=== PATIENT | female | born 1945 ===

== ENCOUNTER 2021-07-03 05:57 | Day surgery (SDC) | payer OTHER ==
[~2021-07-03 05:57] MED LIST: ADULT LOW DOSE81 M1 PO; FOLIC ACID20 MG PO; GABAPENTIN100 M2 PO; LEVO-T75 MCG PO; LIPITOR20 MG PO; PEPCID AC20 MG PO; PREVACID30 MG PO; TOPROL XL25 M1 PO
[2021-07-03] MEDS ORDERED: OXYC1TAB9 PO (14:32)
[2021-07-03] MEDS ORDERED: DUI500 PO (14:32)
== END 2021-07-03 18:00 | disposition home or self-care (01) ==
LOC: CIR.AMB 05:57
PROVIDERS: ATTEND Orthopaedic Surgery Sports Medicine
DX: M75.122 Complete rotator cuff tear or rupture of left shoulder, not specified as traumatic (principal); M75.112 Incomplete rotator cuff tear or rupture of left shoulder, not specified as traumatic; I10 Essential (primary) hypertension; E78.5 Hyperlipidemia, unspecified; E03.9 Hypothyroidism, unspecified

== ENCOUNTER 2024-05-26 07:00 | Inpatient (IN) | payer OTHER ==
[~2024-05-26] VITALS: Ht 160 cm; Wt 0.5 kg
[~2024-05-26 07:00] MED LIST changes: +DUI500 PO; +OXYC1TAB9 PO
[2024-05-26 07:47] LABS: HEMATOCRIT 39.8 % (36.0-45.00); HEMOGLOBIN 13.2 g/dL (12.0-15.00); MEAN CELL VOLUME 88.3 fL (80.00-100.00); MEAN CORPUSCULAR HEMOGLOBIN 29.3 pg (27.00-32.0); MEAN CORPUSCULAR HGB CONC 33.1 g/dl (32.0-36.0); PLATELET COUNT 222 K/uL (150-450); RED CELL DISTRIBUTION WIDTH 14.5 % (11.5-14.5)
[2024-05-26 07:51] VITALS: BP 132/82
[2024-05-26 07:52] LABS: URINE APPEARANCE Clear; URINE BILIRRUBIN Negative (NEGATIVE); URINE BLOOD Negative; URINE COLOR Yellow; URINE GLUCOSE Negative (NEGATIVE); URINE KETONE Negative (NEGATIVE); URINE LEUKOCYTE Moderate; URINE NITRATE Negative; URINE PROTEIN Negative (NEGATIVE); URINE UROBILINOGEN 0.2 E.U./dl
[2024-05-26] MEDS ORDERED: FOSAMAX70 MG PO (07:55)
[2024-05-26 07:56] LABS: URINE BACTERIA 127.2 uL (0.0-1933); URINE EPITHELIAL CELLS 14.8 uL (0.0-38.8); URINE WBC 26.4 uL (0.0-23.2)
[2024-05-26 08:12] LABS: URINE CAST 0.44 uL (0.0-1.40)
[2024-05-26 08:17] LABS: INR 0.96; PARTIAL THROMBOPLASTIN TIME 23.5 SECONDS (22.0-34.0); PROTHROMBIN TIME 10.5 SECONDS (9.0-11.5)
[2024-05-26 08:52] LABS: ALBUMIN 3.7 gm/dL (3.4-5.0); BILIRUBIN TOTAL 0.51 mg/dL (0.3-1.2); CALCIUM 9.1 mg/dL (8.5-10.1); CREATININE SERUM 0.78 mg/dL (0.55-1.02); GFR 71.43; GLOBULINA 3.7 G/DL (2.4-3.5); POTASSIUM 4.65 mEq/L (3.5-5.1); TOTAL PROTEIN 7.4 gm/dL (6.4-8.2)
[2024-05-26 11:34] LABS: RH POSITIVE
[2024-06-01] MEDS ORDERED: VANCOMYCIN HCL 1,000 MG VIAL IV ONE (10:15)
[2024-06-01] MEDS ORDERED: TRANEXAMIC ACID 100MG/1ML (1000MG) AMPUL IV ONE (10:15)
[2024-06-01] MEDS ORDERED: CEFAZOLIN SODIUM 1,000 MG VIAL IV ONE (10:15)
[2024-06-01] MEDS ORDERED: KETOROLAC TROMETHAMINE 60 MG VIAL IM ONE (11:19)
[2024-06-01] MEDS ORDERED: SUGAMMADEX SODIUM 200 MG/2 ML VIAL IV ONE (11:34)
[2024-06-01] MEDS ORDERED: GENTAMICIN SULFATE 40 MG/ML VIAL IV SCH (12:02)
[2024-06-01] MEDS ORDERED: MORPHINE SULFATE 2 MG/ML CARTRIDGE IV ONE (12:15)
[2024-06-01] MEDS ORDERED: MORPHINE SULFATE 4 MG/ML CARTRIDGE IV PRN (12:15)
[2024-06-01] MEDS ORDERED: SODIUM CHLORIDE 0.45 % 1,000 ML IV SCH (12:15)
[2024-06-01] MEDS ORDERED: ONDANSETRON HCL 2 MG/ML VIAL IV PRN (12:15)
[2024-06-01] MEDS ORDERED: MORPHINE SULFATE 4 MG/ML VIAL IV ONE (12:50)
[2024-06-01] MEDS ORDERED: ENALAPRILAT DIHYDRATE 1.25 MG/ML VIAL IV PRN (14:00)
[2024-06-01 15:02] LABS: HEMATOCRIT 36.9 % (36.0-45.00); HEMOGLOBIN 12.4 g/dL (12.0-15.00); RED BLOOD COUNT 4.22 M/uL (4.00-6.00)
[2024-06-01 16:00] VITALS: BP 135/78; O2SAT 91
[2024-06-01] MEDS ORDERED: CEFAZOLIN SODIUM 1,000 MG VIAL IV SCH (18:00)
[2024-06-01] MEDS ORDERED: FAMOtidine 20 MG TABLET PO SCH (21:00)
[2024-06-02 00:17] VITALS: BP 128/60; O2SAT 97
[2024-06-02] MEDS ORDERED: LEVOTHYROXINE SODIUM 75 MCG TABLET PO SCH (06:00)
[2024-06-02] MEDS ORDERED: LEVOTHYROXINE SODIUM 88 MCG TABLET PO SCH (06:00)
[2024-06-02 07:10] LABS: HEMATOCRIT 38.1 % (36.0-45.00); HEMOGLOBIN 12.8 g/dL (12.0-15.00); MEAN CORPUSCULAR HEMOGLOBIN 29.5 pg (27.00-32.0); MEAN CORPUSCULAR HGB CONC 33.5 g/dl (32.0-36.0); PLATELET COUNT 231 K/uL (150-450); RED BLOOD COUNT 4.33 M/uL (4.00-6.00); RED CELL DISTRIBUTION WIDTH 14.4 % (11.5-14.5)
[2024-06-02] MEDS ORDERED: INTEGRA PLUS C1 EACH PO (07:38)
[2024-06-02] MEDS ORDERED: ACETAMINOPHEN-1 EAC2 PO (07:39)
[2024-06-02] MEDS ORDERED: BACTRIM DS TAB1 EACH PO (07:39)
[2024-06-02] MEDS ORDERED: ACETAMINOPHEN WITH CODEINE 1 UDTAB TABLET PO PRN (07:45)
[2024-06-02 08:00] VITALS: BP 144/69
[2024-06-02] MEDS ORDERED: METOPROLOL SUCCINATE 50 MG TAB.SR.24H PO SCH ×2 (09:00)
[2024-06-02] MEDS ORDERED: BACITRACIN 28.35 GM OINT.TUBE TOP SCH (09:00)
[2024-06-02] MEDS ORDERED: ATORVASTATIN CALCIUM 40 MG TABLET PO SCH (09:00)
[2024-06-02] MEDS ORDERED: IRON FUM,PS/FOLIC/BCOMP,C NO.9 1 CAP CAPSULE PO SCH (09:00)
[2024-06-02] MEDS ORDERED: SENNA/DOCUSATE SODIUM 1 TAB TABLET PO SCH (09:00)
== END 2024-06-02 11:59 | disposition home or self-care (01) | DRG 483 ==
LOC: ADM 07:00 → O/R 06-01 05:20 → SURG 06-01 05:20 → EDSTATUS 06-01 07:00 → CIR.AMB 06-01 07:00 → SURH 06-01 07:00 → SURG 06-01 12:53
PROVIDERS: ADMIT Orthopaedic Surgery Sports Medicine; ATTEND Orthopaedic Surgery Sports Medicine
PROC: 0PUD0JZ Supplement Left Humeral Head with Synthetic Substitute, Open Approach (ICD-10-PCS; 2024-06-01)
PROC: 0RCK0ZZ Extirpation of Matter from Left Shoulder Joint, Open Approach (ICD-10-PCS; 2024-06-01)
PROC: 0RRK00Z Replacement of Left Shoulder Joint with Reverse Ball and Socket Synthetic Substitute, Open Approach (ICD-10-PCS; principal; 2024-06-01 07:00)
DX: M19.012 Primary osteoarthritis, left shoulder (principal); M75.122 Complete rotator cuff tear or rupture of left shoulder, not specified as traumatic